=== PATIENT | male | born 1955 | race Caucasian/White ===

== ENCOUNTER 2018-04-13 11:12 | Observation (INO) ==
--- NOTE | 2018-04-13 12:13 | ERNOTE ---
Lower Extremity HPI - Narrative Date of Service: 04/13/18 - General Lower Extremities Pain: knee: right Time Seen by Provider: 04/13/18 11:54 Source: patient, family, RN notes reviewed Exam Limitations: no limitations - Immun/Allergies/Home Medications Immunizations: IMMUNIZATION HX Immunizations Up to Date Yes History of Influenza Vaccine No Allergies/Adverse Reactions: Allergies Allergy/AdvReac Type Severity Reaction Status Date / Time No Known Allergies Allergy Verified 04/13/18 16:35 Home Medications: HOME MEDICATIONS Allopurinol [Zyloprim] 300 mg PO DAILY 04/13/18 [Last Taken Unknown] Canagliflozin [Invokana] 300 mg PO DAILY 04/13/18 [Last Taken Unknown] HYDROcodone/ACETAMINOPHEN [Hydrocodon-Acetaminophn 10-325] 1 each PO TID PRN 04/13/18 [Last Taken Unknown] Ibuprofen [Ibu] 800 mg PO DAILY 04/13/18 [Last Taken Unknown] Insulin Degludec [Tresiba Flextouch U-100] 75 unit SQ DAILY 04/13/18 [Last Taken Unknown] Liraglutide [Victoza 2-[place]] 1.8 mg SQ DAILY 04/13/18 [Last Taken Unknown] Lisinopril [Zestril] 20 mg PO DAILY 04/13/18 [Last Taken Unknown] Simvastatin [Zocor] 10 mg PO DAILY 04/13/18 [Last Taken Unknown] metFORMIN HCL [Metformin HCl] 1,000 mg PO BID 04/13/18 [Last Taken Unknown] - History of Present Illness Narrative: Finesse is a 62 year old male who was directed to come to the ED for evaluation after a possible DVT was seen on the MRI he had of his left knee earlier this morning. He has been having problems with his knee for several months. His pain is behind the knee. There was no injury. He sees a pain clinic and is on [place]. He has no prior history of DVT. He has had no recent surgeries or taken any long trips. He is a nonsmoker. His oxygen saturation is noted to be in the low 90's and occasionally dips into the upper 80's on room air. His reports that this was noted by his PCP recently. A chest xray was done without any findings. The patient has no underlying respiratory problems. He denies dyspnea, but his reports that he does get short of breath with exertion. He is also tachycardic in the 110's. Modifying Factors - (Improves): Reports: pain medication, rest Modifying Factors - (Worsens): Reports: movement Associated Symptoms: Denies: unable to bear weight Prior Treament: Reports: recently seen, treated by physician. Denies: similar symptoms before Review of Systems - Review of Systems Constitutional: Absent: fever, chills EYE: Present: no symptoms reported ENT: Present: no symptoms reported Respiratory: Present: cough. Absent: orthopnea Cardiology: Absent: chest pain, edema, claudication Gastrointestinal/Abdominal: Absent: nausea, abdominal pain Genitourinary: Present: no symptoms reported Musculoskeletal: Present: joint pain. Absent: joint swelling Skin: Absent: rash, lesions, lumps, change in color Neurological: Absent: headache, dizziness/light-headedness Endocrine: Present: no symptoms reported Hematologic/Lymphatic: Absent: easy bruising, easy bleeding Psych: Present: no symptoms reported Medical History (Last Reviewed 04/13/18 @ 14:35 by Pati Mortensen NP) Diabetes 1.5, managed as type 2 Hypercholesteremia Hypertension Surgical History: Surgical History (Last Reviewed 04/13/18 @ 14:35 by Pati Mortensen NP) No history of previous surgery Family History: Family History (Last Reviewed 04/13/18 @ 14:35 by Pati Mortensen NP) Mother Hypertension Father Colon cancer Hypertension Grandfather Myocardial infarction Social History: Preferred Language Algerian Alcohol Use none Drug Use none Physical Exam - Physical Exam General Appearance: Present: alert, no apparent distress, obese Head Exam: Present: normal inspection Neck: Present: normal inspection, nontender, supple Respiratory: Present: no respiratory distress, normal breath sounds, no accessory muscle use, lungs clear Cardiovascular/Chest: Present: no murmur, normal peripheral pulses, tachycardia Peripheral Pulses: N=norm/S=strong/W=weak/B=bound/A=absent: Dorsalis-pedis (R): Normal, Dorsalis-pedis (L): Normal Gastrointestinal/Abdominal: Present: nontender, nondistended, soft Extremity Exam: Present: normal range of motion, no edema, other - Left posterior knee tender to palpation. Absent: calf tenderness Neurological Exam: Present: alert, oriented, normal mood/affect, no motor/sen serena deficits - Left posterior knee tender to palpation Skin Exam: Present: normal color, diaphoresis ED Progress - Results and Orders Patient's Lab Results:: I have reviewed the patient's lab results. - Vital Signs Patient's Vital Signs:: I have reviewed the patient's vital signs. Vital Signs: Vital Signs 04/13/18 11:23 04/13/18 11:33 04/13/18 12:03 Temperature 36.3 C Pulse Rate 125 H 119 H 112 H Respiratory Rate 14 12 12 Blood Pressure 127/79 108/78 102/67 O2 Sat by Pulse Oximetry 92 L 98 94 - EKG EKG: NSR EKG read: Reviewed by me - CT/Ultrasound CT/Ultrasound Narrative: US Venous Ext Limit LT Left common femoral, greater saphenous, superficial femoral, popliteal, posterior tibial veins demonstrates noncompressibility, with thrombosis with absence of normal color flow. IMPRESSION: Positive for left lower extremity deep venous thrombosis, from the common femoral vein, all the way down into the calf. Ordering provider Pati Mortensen was informed regarding the above results by telephone on 04/13/2018 1:17 PM. Electronically signed by Yang Kunz M.D.. Yang Kunz MD CTA Chest: Pulmonary Arteries: Diagnostic Quality (for pulmonary arteries): Opacification of the pulmonary arterial branches is adequate. The breath hold is adequate. There is streak artifact from contrast material within the superior vena cava, which affects the adjacent pulmonary arteries. Central filling defects are noted within the distal right pulmonary artery, with smaller filling defects extending into the right lower lobe branch and basal segmental branches as well as into the right upper lobe branch of the right pulmonary artery. No definite axial CT image findings of right heart strain. Aorta: Thoracic aorta unremarkable without acute findings. Multiple artifacts related to cardiac motion and streak artifact from contrast in the adjacent superior vena cava noted. Mediastinum: No mediastinal mass or lymphadenopathy noted. Heart: No significant pericardial effusion noted. Lung Parenchyma: The lung parenchyma demonstrates no focal consolidation. Hypoinflated lungs with deep tendon atelectasis noted. Patient has calcified granulomas of the right lower lobe. Central Airways: The trachea and bronchi grossly patent. Pleural Spaces: No pneumothorax or pleural effusions present. Bones: Bones are grossly intact. Degenerative changes of the thoracolumbar spine noted. Chest Wall/Axillae: Anterior chest wall is grossly unremarkable. Axillary regions are also grossly normal. Upper Abdomen: Decreased attenuation of liver parenchyma suggestive of fatty liver. There is likely mild sliding-type hiatal hernia. IMPRESSION: 1. Positive for acute pulmonary thromboembolism as above. No evidence for right cardiac strain. 2. Negative for acute thoracic aortic finding. Above critical result (PULMONARY EMBOLISM) communicated to Pati Mortensen via telephone on 04/13/2018 3:21 PM. Electronically signed by Yang Kunz M.D.. - Progress/Reassessment Chief Complaint: General Assessment Progress:: Unchanged Plan - Plan Plan: Dr. Camara was contacted and the patient will be admitted to observation status due to the extensive nature of his DVT and having a PE at the same time. He will receive Lovenox and Coumadin. O2 ordered to maintain sat greater than 94%. He has been mostly in the low 90's on room air but occasionally does dip into the upper 80's. Departure Clinical Impression: Left leg DVT Qualifiers: Affected thrombotic vein of extremity: unspecified vein of extremity Chronicity: acute Qualified Code(s): I82.402 - Acute embolism and thrombosis of unspecified deep veins of left lower extremity Pulmonary embolism Qualifiers: Pulmonary embolism type: other Chronicity: acute Acute cor pulmonale presence: without acute cor pulmonale Qualified Code(s): I26.99 - Other pulmonary embolism without acute cor pulmonale - Departure Disposition: Still a patient Condition: Fair
[2018-04-13 12:32] LABS: Hematocrit 46.7 % (42.0-52.0); Hemoglobin 15.1 gm/dL (13.5-18.0); Mean Cell Volume 96.3 fl (78-100); Mean Corpuscular Hemoglobin 31.1 pg (27-31); Mean Corpuscular Hgb Conc 32.3 g/dl (32-36); Mean Platelet Volume 10.3 fl (8-11.3); Neutrophil # 4.2 K/mm3 (1.3-6.0); Neutrophil % 66.7 % (42-75.0); Platelet Count 245 K/mm3 (150-450); Red Blood Count 4.85 M/mm3 (4.7-6.0); Red Cell Distribution Width 14.1 % (11.5-14.0); White Blood Count 6.3 K/mm3 (4.0-10.5)
[2018-04-13 12:44] LABS: Albumin * 3.6 gm/dl (3.4-5.0); Anion Gap 13.3 mmol/L (6.8-13.8); BUN/Creatinine Ratio 13.2 (9.0-21.6); Bilirubin, Total 0.4 mg/dL (0.0-1.1); Ca. Corrected For Albumin 9.3 mg/dL (8.4-10.2); Calcium * 9.3 mg/dL (7.9-10.9); Carbon Dioxide 29.2 mmol/L (24-32.6); Potassium 4.5 mmol/L (3.4-4.6)
[2018-04-13 12:47] LABS: Prothrombin Time (Patient) 9.9 Seconds (9.0-11.0)
[2018-04-13 12:48] LABS: INR 0.99 INR (0.90-1.10)
[2018-04-13] MEDS ORDERED: ENOXAPARIN SODIUM 100 MG/ML SYRG SC ONE ×2 (15:51→16:01)
[2018-04-13] MEDS ORDERED: WARFARIN SODIUM 5 MG TABLET PO ONE (16:30)
[2018-04-13] MEDS ORDERED: ACETAMINOPHEN PO PRN (19:51)
[2018-04-13] MEDS ORDERED: HYDROCODONE PO PRN (19:51)
[2018-04-13] MEDS ORDERED: [UNRECOGNIZED DRUG - OTHER] PO PRN (19:51)
--- NOTE | 2018-04-13 19:51 | HP ---
Chief Complaint - Chief Complaint Date of Service: 04/13/18 Time of Service: 19:37 Chief Complaint: DVT on MRI History of Present Illness: Finesse Merino, is a 61-year-old white male, with previous medical history of hypertension, hyperlipidemia, traumatic arthritis of the left knee with chronic pain syndrome, who was admitted on 04/13/2018 for a possible DVT seen on MRI. The patient about 6 weeks ago noticed a pop on the back of his left knee. Since then he had been having some tightness of his knee up to his thigh. He had an MRI done of his left knee on the morning of admission and there was a questionable DVT. His nurse practitioner Tosin Benson told him to go back to the emergency room for a venous Doppler which showed a deep vein thrombosis involving his femoral femoral vein all the way to psoterior tibial vein. His d- dimer was also elevated and so a CT angiogram of his lung was done and it showed pulmonary embolism of the distal right pulmonary artery. In the emergency room his oxygen saturation was noted to be on the low 90s and occasionally dips into the 80s on room air. He has been having some dyspnea on exertion recently but denies any chest pain. He denies any recent trauma to his knee but has had 2 episodes of full in the last 2 months as his his knee would give out under him. He was then admitted for further evaluation and treatment. Medical History (Last Reviewed 04/13/18 @ 14:35 by Pati Mortensen NP) Diabetes 1.5, managed as type 2 Hypercholesteremia Hypertension Surgical History: Surgical History (Last Reviewed 04/13/18 @ 14:35 by Pati Mortensen NP) No history of previous surgery Family History: Family History (Last Reviewed 04/13/18 @ 14:35 by Pati Mortensen NP) Mother Hypertension Father Colon cancer Hypertension Grandfather Myocardial infarction Social History: Patient Lives/Resources With Spouse Utilized Preferred Language Solomon Islander Do you have any baptist or No cultural preference? Smoking Status Former smoker Have you smoked in the past 12 No months Do you dip or chew tobacco Yes Alcohol Use none Drug Use none Review Of Systems (GEN) - Review of Systems Generalized/Overall Review: Absent: Weakness, Chills, Fever Respiratory: Present: Shortness of Breath. Absent: Cough, Orthopnea, Wheezing Cardiac: Absent: Chest Pain, Edema, Palpitations Abdominal: Absent: Nausea, Vomiting Genitourinary: Absent: Urgency, Frequency Musculoskeletal: Present: Joint Pain Immunizations: IMMUNIZATION HX Immunizations Up to Date Yes History of Influenza Vaccine No Allergies/Adverse Reactions: Allergies Allergy/AdvReac Type Severity Reaction Status Date / Time No Known Allergies Allergy Verified 04/13/18 16:35 Home Medications: HOME MEDICATIONS Allopurinol [Zyloprim] 300 mg PO DAILY 04/13/18 [Last Taken Unknown] Canagliflozin [Invokana] 300 mg PO DAILY 04/13/18 [Last Taken Unknown] HYDROcodone/ACETAMINOPHEN [Hydrocodon-Acetaminophn 10-325] 1 each PO TID PRN 04/13/18 [Last Taken Unknown] Ibuprofen [Ibu] 800 mg PO DAILY 04/13/18 [Last Taken Unknown] Insulin Degludec [Tresiba Flextouch U-100] 75 unit SQ DAILY 04/13/18 [Last Taken Unknown] Liraglutide [Victoza 2-[place]] 1.8 mg SQ DAILY 04/13/18 [Last Taken Unknown] Lisinopril [Zestril] 20 mg PO DAILY 04/13/18 [Last Taken Unknown] Simvastatin [Zocor] 10 mg PO DAILY 04/13/18 [Last Taken Unknown] metFORMIN HCL [Metformin HCl] 1,000 mg PO BID 04/13/18 [Last Taken Unknown] Exam - Exam Vital Signs: Vital Signs - Last Taken Temp 36.8 C 04/13/18 16:38 Pulse 114 H 04/13/18 16:38 Resp 12 04/13/18 16:38 BP 131/89 04/13/18 16:38 Pulse Ox 97 04/13/18 16:38 Constitutional: Present: Alert, Oriented x3, Cooperative, Obese ENT Exam: Present: hearing grossly normal Eye Exam: bilateral eye: normal inspection, PERRL, EOMI Neck: Present: supple Respiratory: Present: normal breath sounds, No rales, No wheezing Cardiovascular/Chest: Present: regular rate, rhythm, no JVD, no murmur, tachycardia Abdomen: Present: Normal bowel sounds, soft, nontender, nondistended Extremity: Present: calf tenderness, lower extremity edema, other - mild swelling bck of left knee Diagnostic Studies: Abnormal Lab Results 04/13/18 04/13/18 04/13/18 Range/Units 12:25 12:25 12:25 MCH 31.1 H (27-31) pg RDW 14.1 H (11.5-14.0) % D-Dimer 4.55 H (0.19-0.49) ug/mL Random Glucose 182 H (70-110) mg/dL Laboratory Results WBC 6.3 K/mm3 (4.0-10.5) 04/13/18 12: RBC 4.85 M/mm3 (4.7-6.0) 04/13/18 12: Hgb 15.1 gm/dL (13.5-18.0) 04/13/18 12: Hct 46.7 % (42.0-52.0) 04/13/18: MCV 96.3 fl (78-100) 04/13/18: MCH 31.1 pg (27-31) H 04/13/18: MCHC 32.3 g/dl (32-36) 04/13/18: RDW 14.1 % (11.5-14.0) H 04/13/18: Plt Count 245 K/mm3 (150-450) 04/13/18 12: MPV 10.3 fl (8-11.3) 04/13/18 12: Immature Gran % (Auto) 0.30 % (0.001-0.429) 04/13/18: Immature Gran # (Auto) 0.02 K/mm3 (0.000-0.0310) 04/13/18: Neutrophils % 66.7 % (42-75.0) 04/13/18 12: Lymphocytes % 25.9 % (20-51) 04/13/18 12: Monocytes % 5.4 % (0.0-9) 04/13/18: Eosinophils % 1.4 % (0.0-3.0) 04/13/18: Basophils % 0.3 % (0.0-1.0) 04/13/18 12: Nucleated RBC % 0.0 k/mm3 (0-1) 04/13/18 12: Neutrophils # 4.2 K/mm3 (1.3-6.0) 04/13/18: Lymphocytes # 1.62 k/mm3 (1.5-3.5) 04/13/18 12:25 Monocytes # 0.3 k/mm3 (0.0-1.0) 04/13/18 12:25 Eosinophils # 0.1 k/mm3 (0.0-0.7) 04/13/18 12:25 Absolute Basophils 0.0 k/mm3 (0.0-0.1) 04/13/18 12:25 PT 9.9 Seconds (9.0-11.0) 04/13/18 12:25 INR (Anticoag Therapy) 0.99 INR (0.90-1.10) 04/13/18 12:25 D-Dimer 4.55 ug/mL (0.19-0.49) H 04/13/18 12:25 Sodium 138 mmol/L (132-142) 04/13/18 12:25 Plasma Sodium 139 mmol/L (130-142) 04/13/18 12:25 Potassium 4.5 mmol/L (3.4-4.6) 04/13/18 12:25 Chloride 100 mmol/L (97-106) 04/13/18 12:25 Carbon Dioxide 29.2 mmol/L (24-32.6) 04/13/18 12:25 Anion Gap 13.3 mmol/L (6.8-13.8) 04/13/18 12:25 BUN 17 mg/dL (6-23) 04/13/18 12:25 Creatinine 1.29 mg/dL (0.4-1.4) 04/13/18 12:25 Est GFR (Non-Af Amer) 60 mL/min (60-130) 04/13/18 12:25 BUN/Creatinine Ratio 13.2 (9.0-21.6) 04/13/18 12:25 Random Glucose 182 mg/dL (70-110) H 04/13/18 12:25 Calcium 9.3 mg/dL (7.9-10.9) 04/13/18 12:25 Calcium Adj for Albumin 9.3 mg/dL (8.4-10.2) 04/13/18 12:25 Total Bilirubin 0.4 mg/dL (0.0-1.1) 04/13/18 12:25 AST 22 U/L (0-48) 04/13/18 12:25 ALT 40 U/L (19-67) 04/13/18 12:25 Alkaline Phosphatase 65 U/L (50-170) 04/13/18 12:25 Total Protein 7.0 gm/dL (6.2-8.2) 04/13/18 12:25 Albumin 3.6 gm/dl (3.4-5.0) 04/13/18 12:25 Assessment/Plan - Assessment/Plan (1) Pulmonary embolism Assessment: will continue with therapeutic lovenox and coumadin . they will call his insurance if they will cover the NOAG. Problem: Acute Qualifiers: Pulmonary embolism type: other Chronicity: acute Acute cor pulmonale presence: without acute cor pulmonale Qualified Code(s): I26.99 - Other pulmonary embolism without acute cor pulmonale (2) Left leg DVT Assessment: will continue with anticoagulation. Problem: Acute Qualifiers: Affected thrombotic vein of extremity: unspecified vein of extremity Chronicity: acute Qualified Code(s): I82.402 - Acute embolism and thrombosis of unspecified deep veins of left lower extremity (3) Hypertension Assessment: continue with home medications Problem: Chronic Qualifiers: Hypertension type: essential hypertension Qualified Code(s): I10 - Essential (primary) hypertension (4) Hyperlipidemia Assessment: continue with home medications Problem: Chronic Qualifiers: Hyperlipidemia type: mixed hyperlipidemia Qualified Code(s): E78.2 - Mixed hyperlipidemia (5) Diabetes mellitus Assessment: continue with home medications. Problem: Chronic Qualifiers: Diabetes mellitus type: type 2
[2018-04-13] MEDS ORDERED: HYDROcodone/ACETAMINOPHEN 1 EACH TABLET PO PRN (21:08)
[2018-04-13] MEDS ORDERED: metFORMIN HCL 500 MG TABLET ONE (21:19)
[2018-04-14] MEDS ORDERED: ALLOPURINOL 300 MG TABLET PO SCH (09:00)
[2018-04-14] MEDS ORDERED: LISINOPRIL 20 MG TABLET PO SCH (09:00)
[2018-04-14] MEDS ORDERED: Canagliflozin [Invokana] 300 MG PO SCH (09:00)
[2018-04-14] MEDS ORDERED: Insulin Degludec [Tresiba Flextouch U-100] SQ SCH (09:00)
[2018-04-14] MEDS ORDERED: Liraglutide [Victoza 2-Pak] SQ SCH (09:00)
[2018-04-14] MEDS ORDERED: SIMVASTATIN 10 MG TABLET PO SCH ×2 (09:00→21:00)
--- NOTE | 2018-04-14 10:29 | DS ---
(1) Pulmonary embolism Problem: Acute Qualifiers: Pulmonary embolism type: other Chronicity: acute Acute cor pulmonale presence: without acute cor pulmonale Qualified Code(s): I26.99 - Other pulmonary embolism without acute cor pulmonale (2) Left leg DVT Problem: Acute Qualifiers: Affected thrombotic vein of extremity: unspecified vein of extremity Chronicity: acute Qualified Code(s): I82.402 - Acute embolism and thrombosis of unspecified deep veins of left lower extremity (3) Hypertension Problem: Chronic Qualifiers: Hypertension type: essential hypertension Qualified Code(s): I10 - Essential (primary) hypertension (4) Hyperlipidemia Problem: Chronic Qualifiers: Hyperlipidemia type: mixed hyperlipidemia Qualified Code(s): E78.2 - Mixed hyperlipidemia (5) Diabetes mellitus Problem: Chronic Qualifiers: Diabetes mellitus type: type 2 Description of Stay: Finesse Merino, is a 61-year-old white male, with previous medical history of hypertension, hyperlipidemia, traumatic arthritis of the left knee with chronic pain syndrome, who was admitted on 04/13/2018 for a possible DVT seen on MRI. The patient about 6 weeks ago noticed a pop on the back of his left knee. Since then he had been having some tightness of his knee up to his thigh. He had an MRI done of his left knee on the morning of admission and there was a questionable DVT. His nurse practitioner Tosin Benson told him to go back to the emergency room for a venous Doppler which showed a deep vein thrombosis involving his femoral femoral vein all the way to psoterior tibial vein. His d- dimer was also elevated and so a CT angiogram of his lung was done and it showed pulmonary embolism of the distal right pulmonary artery. In the emergency room his oxygen saturation was noted to be on the low 90s and occasionally dips into the 80s on room air. He has been having some dyspnea on exertion recently but denies any chest pain. He denies any recent trauma to his knee but has had 2 episodes of full in the last 2 months as his knee would give out under him. He was then admitted for further evaluation and treatment. He was given Lovenox and coumadin. They have decided to be on Xarelto. Will start him on 15 mg PO BID x 3 weeks and then 20 mg PO QD. he will follow up with his PCP, Tosin Benson, next week. We will schedule him an Echo on outpatient basis. Procedures Performed: none Results and Findings: Lab Pending Results 04/13/18 12:25: WBC 6.3, RBC 4.85, Hgb 15.1, Hct 46.7, MCV 96.3, MCH 31.1 H, MCHC 32.3, RDW 14.1 H, Plt Count 245, MPV 10.3, Immature Gran % (Auto) 0.30, Immature Gran # (Auto) 0.02, Neutrophils % 66.7, Lymphocytes % 25.9, Monocytes % 5.4, Eosinophils % 1.4, Basophils % 0.3, Nucleated RBC % 0.0, Neutrophils # 4.2, Lymphocytes # 1.62, Monocytes # 0.3, Eosinophils # 0.1, Absolute Basophils 0.0 04/13/18 12:25: PT 9.9, INR (Anticoag Therapy) 0.99 04/13/18 12:25: Sodium 138, Plasma Sodium 139, Potassium 4.5, Chloride 100, Carbon Dioxide 29.2, Anion Gap 13.3, BUN 17, Creatinine 1.29, Est GFR (Non-Af Amer) 60, BUN/Creatinine Ratio 13.2, Random Glucose 182 H, Calcium 9.3, Calcium Adj for Albumin 9.3, Total Bilirubin 0.4, AST 22, ALT 40, Alkaline Phosphatase 65, Total Protein 7.0, Albumin 3.6 04/13/18 12:25: D-Dimer 4.55 H Discharge Location: Home Disposition: Home self-care Condition: Stable Discharge Activity: Activity as tolerated Discharge Diet: Consistent carbs, Low salt Referrals: Shannan Warner ARNP [Primary Care Provider] - Additional Patient Instructions (free text): Follow up with KASHMIR Shaffer next week. Prescriptions (Any new or edited meds): Rivaroxaban [Xarelto] 15 mg PO BID #42 tablet Complete Home Medications List: Complete Home Medication List: Allopurinol [Zyloprim] 300 mg PO DAILY 04/13/18 Canagliflozin [Invokana] 300 mg PO DAILY 04/13/18 HYDROcodone/ACETAMINOPHEN [Hydrocodone-Acetamin 10-325 mg] 1 each PO TID PRN 04/13/18 Insulin Degludec [Tresiba Flextouch U-100] 75 unit SQ DAILY 04/13/18 Liraglutide [Victoza 2-[place]] 1.8 mg SQ DAILY 04/13/18 Lisinopril [Zestril] 20 mg PO DAILY 04/13/18 Simvastatin [Zocor] 10 mg PO DAILY 04/13/18 metFORMIN HCL [Metformin HCl] 1,000 mg PO BID 04/13/18 Rivaroxaban [Xarelto] 15 mg PO BID #42 tablet 04/14/18
[2018-04-14 10:37] LABS: Prothrombin Time (Patient) 9.7 Seconds (9.0-11.0)
[2018-04-14 10:38] LABS: INR 0.97 INR (0.90-1.10)
[2018-04-14 12:01] VITALS: BP 126/90
[2018-04-14] MEDS ORDERED: RIVAROXABAN 15 MG TABLET PO SCH (21:00)
== END 2018-04-14 12:14 | disposition home or self-care (01) ==
LOC: ER 11:12 → MS 11:12
PROVIDERS: ADMIT Internal Medicine; ATTEND Internal Medicine
CPT/HCPCS: 36415; 71275; 73721; 80053; 85025; 85379; 85610; 93005; 93971; 96372; 99284; G0378